=== PATIENT | female | born 1985 | race American Indian/Alaskan Native ===

== ENCOUNTER 2019-05-21 14:07 | Emergency (ER) | payer MEDICAID, OTHER ==
[2019-05-21 14:25] VITALS: BP 147/93
[2019-05-21] MEDS ORDERED: IBUPROFEN 600 MG TAB PO ONE (14:47)
--- NOTE | 2019-05-21 14:47 | Event Note ---
ED Screening Note Date of service: 05/21/19 Time: 14:45 ED Screening Note: 33 y o femLE PRESENTS WITH HEADCHE and gen body aches with fever and cough x 2 days tachy, low grade fever This initial assessment/diagnostic orders/clinical plan/treatment(s) is/are subject to change based on patients health status, clinical progression and re- assessment by fellow clinical providers in the ED. Further treatment and workup at subsequent clinical providers discretion. Patient/guardian urged not to elope from the ED as their condition may be serious if not clinically assessed and managed. Initial orders include: cxr motrin in triage
--- NOTE | 2019-05-21 16:02 | XRay Report ---
CHEST 2 VIEWS INDICATION / CLINICAL INFORMATION: cough/fever. COMPARISON: None available. FINDINGS: SUPPORT DEVICES: None. HEART / MEDIASTINUM: No significant abnormality. LUNGS / PLEURA: No significant pulmonary or pleural abnormality. No pneumothorax. ADDITIONAL FINDINGS: No significant additional findings. IMPRESSION: 1. No acute findings. Signer Name: Matt Aguero MD Signed: 05/21/2019 3:58 PM Workstation Name: [id number]
--- NOTE | 2019-05-21 16:55 | Emergency Department Report ---
ED General Adult HPI - General Chief complaint: Upper Respiratory Infection Stated complaint: FLU LIKE SYMPTOMS Time Seen by Provider: 05/21/19 15:53 Source: patient Mode of arrival: Ambulatory Limitations: No Limitations - History of Present Illness Initial comments: 33-year-old -Wallis[place] female with history of asthma and hypertension presents with complaints of headache, body aches, runny nose, sneezing, and cough starting yesterday. She denies any shortness of breath, chest pain. She admits to wheezing and states she needs a refill on her inhaler. Patient states off his productive of yellow mucus. 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 Severity scale (0 -10): 5 - Related Data Home Medications Medication Instructions Recorded Confirmed Last Taken Pnv with Ca,No.72/Iron/FA 1 tab PO DAILY 09/25/13 11/12/15 09/24/13 12:00 [ Plus Tablet] Previous Rx's Medication Instructions Recorded Last Taken Type HYDROcodone/ACETAMINOPHEN [[place] 1 each PO PRN PRN #20 tablet 09/26/13 Unknown Rx 5/325 Tablet] Ibuprofen [Motrin 600 MG tab] 600 mg PO Q6HR PRN #30 tablet 09/26/13 Unknown Rx labetaloL [Labetalol 100mg TAB] 100 mg PO BID #90 tablet 09/26/13 Unknown Rx Ibuprofen [Motrin 600 MG tab] 600 mg PO Q6H PRN #40 tablet 11/12/15 Unknown Rx ALBUTEROL Inhaler (OR & NICU) 2 puff IH QID PRN #8.5 gram 05/21/19 Unknown Rx [ProAir HFA Inhaler] Benzonatate 200 mg PO TID PRN #30 capsule 05/21/19 Unknown Rx Oseltamivir [Tamiflu] 75 mg PO BID #10 capsule 05/21/19 Unknown Rx Prednisone [predniSONE 5 mg (6-Day 5 mg PO .TAPER #1 tab.ds.pk 05/21/19 Unknown Rx Pack, 21 Tabs)] Butalb/Acetamin/Caff 50-325-40 1 tab PO Q6HR PRN #24 tab 05/27/19 Unknown Rx [Fioricet] Allergies Allergy/AdvReac Type Severity Reaction Status Date / Time No Known Allergies Allergy Verified 09/25/13 03:56 ED Review of Systems ROS: Stated complaint: FLU LIKE SYMPTOMS Other details as noted in HPI Constitutional: chills, fever, malaise Eyes: denies: eye discharge ENT: denies: throat pain Respiratory: cough, wheezing. denies: shortness of breath Cardiovascular: denies: chest pain, palpitations Gastrointestinal: nausea. denies: abdominal pain, vomiting, diarrhea Genitourinary: denies: dysuria Musculoskeletal: myalgia. denies: back pain Skin: denies: rash, lesions Neurological: headache. denies: weakness, numbness, paresthesias ED Past Medical Hx - Past Medical History Previous Medical History?: Yes Hx Hypertension: No Hx Congestive Heart Failure: No Hx Diabetes: No Hx Deep Vein Thrombosis: No Hx Renal Disease: No Hx Sickle Cell Disease: No Hx Seizures: No Hx Asthma: No Hx COPD: No Hx HIV: No Additional medical history: [place] - Surgical History Past Surgical History?: No - Social History Smoking Status: Current Every Day Smoker Substance Use Type: Alcohol - Medications Home Medications: Home Medications Medication Instructions Recorded Confirmed Last Taken Type Pnv with Ca,No.72/Iron/FA 1 tab PO DAILY 09/25/13 11/12/15 09/24/13 12:00 History [ Plus Tablet] HYDROcodone/ACETAMINOPHEN [[place] 1 each PO PRN PRN #20 tablet 09/26/13 11/12/15 Unknown Rx 5/325 Tablet] Ibuprofen [Motrin 600 MG tab] 600 mg PO Q6HR PRN #30 tablet 09/26/13 11/12/15 Unknown Rx labetaloL [Labetalol 100mg TAB] 100 mg PO BID #90 tablet 09/26/13 11/12/15 Unknown Rx Ibuprofen [Motrin 600 MG tab] 600 mg PO Q6H PRN #40 tablet 11/12/15 Unknown Rx ALBUTEROL Inhaler (OR & NICU) 2 puff IH QID PRN #8.5 gram 05/21/19 Unknown Rx [ProAir HFA Inhaler] Benzonatate 200 mg PO TID PRN #30 capsule 05/21/19 Unknown Rx Oseltamivir [Tamiflu] 75 mg PO BID #10 capsule 05/21/19 Unknown Rx Prednisone [predniSONE 5 mg (6-Day 5 mg PO .TAPER #1 tab.ds.pk 05/21/19 Unknown Rx Pack, 21 Tabs)] Butalb/Acetamin/Caff 50-325-40 1 tab PO Q6HR PRN #24 tab 05/27/19 Unknown Rx [Fioricet] ED Physical Exam - General Limitations: No Limitations General appearance: alert, in no apparent distress - Head Head exam: Present: atraumatic, normocephalic - Eye Eye exam: Present: normal appearance - ENT ENT exam: Present: mucous membranes moist - Neck Neck exam: Present: normal inspection, full ROM. Absent: tenderness, lymphadenopathy - Respiratory Respiratory exam: Present: wheezes. Absent: respiratory distress, rales, rhonchi, chest wall tenderness - Cardiovascular Cardiovascular Exam: Present: regular rate, normal rhythm. Absent: systolic murmur, diastolic murmur, rubs, gallop - GI/Abdominal GI/Abdominal exam: Present: soft. Absent: distended, tenderness - Back Exam Back exam: Present: normal inspection - Neurological Exam Neurological exam: Present: alert, oriented X3 - Psychiatric Psychiatric exam: Present: normal affect, normal mood - Skin Skin exam: Present: warm, dry, intact, normal color. Absent: rash ED Course Vital Signs 05/21/19 14:22 Temperature 100.6 F H Pulse Rate 120 H Respiratory 20 Rate Blood Pressure 147/93 O2 Sat by Pulse 98 Oximetry ED Medical Decision Making - Radiology Data Radiology results: report reviewed two-view chest x-ray is negative for acute abnormalities - Medical Decision Making 33-year-old -Wallisian female patient presents here today with complaints of flulike symptoms. She has history of asthma and has been out of her inhaler. She admits to wheezing, but denies shortness of breath. Chest x-ray is negative for pneumonia. Initial temperature and heart rate upon arrival was 100.6 and 120, now 98.7 and 91 bpm, respectively. Patient is nontoxic appearing. Patient stable for discharge home with treatment for the flu. Recommend follow-up with PCP in 5-7 days. Discussed strict return precautions in detail with patient verbalizes understanding. Critical care attestation.: If time is entered above; I have spent that time in minutes in the direct care of this critically ill patient, excluding procedure time. ED Disposition Clinical Impression: Flu syndrome, Wheezing Disposition: TO HOME OR SELFCARE Is pt being admited?: No Condition: Stable Instructions: Influenza (ED) Prescriptions: Benzonatate 200 mg PO TID PRN #30 capsule PRN Reason: Cough Prednisone [predniSONE 5 mg (6-Day Pack, 21 Tabs)] 5 mg PO .TAPER #1 tab.ds.pk ALBUTEROL Inhaler (OR & NICU) [ProAir HFA Inhaler] 2 puff IH QID PRN #8.5 gram PRN Reason: Shortness Of Breath Oseltamivir [Tamiflu] 75 mg PO BID #10 capsule Referrals: [facility],MD [Primary Care Provider] - 3-5 Days
[2019-05-21] MEDS ORDERED: ALBUTEROL 2.5 MG/3 ML NEBU IH ONE (17:24)
[2019-05-21] MEDS ORDERED: IPRATROPIUM 0.02% NEBU 2.5 ML IH ONE (17:24)
[2019-05-21] MEDS ORDERED: dexAMETHasone 20 MG/5 ML VIAL IV ONE (17:24)
== END 2019-05-21 19:20 | disposition home or self-care (01) ==
LOC: ED 14:07
DX: J11.1 Influenza due to unidentified influenza virus with other respiratory manifestations (principal); R06.2 Wheezing; F17.200 Nicotine dependence, unspecified, uncomplicated; Z79.1 Long term (current) use of non-steroidal anti-inflammatories (NSAID); Z79.899 Other long term (current) drug therapy
CPT/HCPCS: 71046; 96374; 99283; J1100; 94640

== ENCOUNTER 2019-05-27 10:48 | Emergency (ER) | payer OTHER ==
[2019-05-27 10:57] VITALS: BP 112/99
[2019-05-27] MEDS ORDERED: BUTALB/ACETAMINOPHEN/CAFFEINE TAB PO ONE (12:43)
[2019-05-27] MEDS ORDERED: diphenhydrAMINE 25 MG CAP PO ONE (12:44)
[2019-05-27] MEDS ORDERED: METOCLOPRAMIDE 10 MG TAB PO ONE (12:44)
[2019-05-27] MEDS ORDERED: predniSONE 20 MG TAB PO ONE (12:44)
--- NOTE | 2019-05-27 12:49 | Emergency Department Report ---
ED General Adult HPI - General Chief complaint: Headache Stated complaint: HEADACHE Time Seen by Provider: 05/27/19 12:43 Source: patient Mode of arrival: Ambulatory Limitations: No Limitations - History of Present Illness Initial comments: Patient presents to the emergency department with a chief complaint of a headache. Patient states the headache is located on the right side of her forehead and describes it as pressure-like in nature. Patient took 2 500 mg tablets of Tylenol yesterday with no relief. Patient denies this being the worse headache of her life. -: Sudden Location: head Severity scale (0 -10): 1 Consistency: constant Improves with: none Worsens with: none Associated Symptoms: denies other symptoms Treatments Prior to Arrival: none - Related Data Home Medications Medication Instructions Recorded Confirmed Last Taken Pnv with Ca,No.72/Iron/FA 1 tab PO DAILY 09/25/13 11/12/15 09/24/13 12:00 [ Plus Tablet] Previous Rx's Medication Instructions Recorded Last Taken Type HYDROcodone/ACETAMINOPHEN [[place] 1 each PO PRN PRN #20 tablet 09/26/13 Unknown Rx 5/325 Tablet] Ibuprofen [Motrin 600 MG tab] 600 mg PO Q6HR PRN #30 tablet 09/26/13 Unknown Rx labetaloL [Labetalol 100mg TAB] 100 mg PO BID #90 tablet 09/26/13 Unknown Rx Ibuprofen [Motrin 600 MG tab] 600 mg PO Q6H PRN #40 tablet 11/12/15 Unknown Rx ALBUTEROL Inhaler (OR & NICU) 2 puff IH QID PRN #8.5 gram 05/21/19 Unknown Rx [ProAir HFA Inhaler] Benzonatate 200 mg PO TID PRN #30 capsule 05/21/19 Unknown Rx Oseltamivir [Tamiflu] 75 mg PO BID #10 capsule 05/21/19 Unknown Rx Prednisone [predniSONE 5 mg (6-Day 5 mg PO .TAPER #1 tab.ds.pk 05/21/19 Unknown Rx Pack, 21 Tabs)] Butalb/Acetamin/Caff 50-325-40 1 tab PO Q6HR PRN #24 tab 05/27/19 Unknown Rx [Fioricet] Allergies Allergy/AdvReac Type Severity Reaction Status Date / Time No Known Allergies Allergy Verified 09/25/13 03:56 ED Review of Systems ROS: Stated complaint: HEADACHE Other details as noted in HPI Comment: All other systems reviewed and negative Constitutional: denies: chills, fever Eyes: denies: eye pain, eye discharge, vision change ENT: denies: ear pain, throat pain Respiratory: denies: cough, shortness of breath, wheezing Cardiovascular: denies: chest pain, palpitations Endocrine: no symptoms reported Gastrointestinal: denies: abdominal pain, nausea, diarrhea Genitourinary: denies: urgency, dysuria, discharge Musculoskeletal: denies: back pain, joint swelling, arthralgia Skin: denies: rash, lesions Neurological: denies: headache, weakness, paresthesias Psychiatric: denies: anxiety, depression Hematological/Lymphatic: denies: easy bleeding, easy bruising ED Past Medical Hx - Past Medical History Previous Medical History?: Yes Hx Hypertension: No Hx Congestive Heart Failure: No Hx Diabetes: No Hx Deep Vein Thrombosis: No Hx Renal Disease: No Hx Sickle Cell Disease: No Hx Seizures: No Hx Asthma: No Hx COPD: No Hx HIV: No Additional medical history: [place] - Surgical History Past Surgical History?: No - Social History Smoking Status: Never Smoker Substance Use Type: None - Medications Home Medications: Home Medications Medication Instructions Recorded Confirmed Last Taken Type Pnv with Ca,No.72/Iron/FA 1 tab PO DAILY 09/25/13 11/12/15 09/24/13 12:00 History [ Plus Tablet] HYDROcodone/ACETAMINOPHEN [[place] 1 each PO PRN PRN #20 tablet 09/26/13 11/12/15 Unknown Rx 5/325 Tablet] Ibuprofen [Motrin 600 MG tab] 600 mg PO Q6HR PRN #30 tablet 09/26/13 11/12/15 Unknown Rx labetaloL [Labetalol 100mg TAB] 100 mg PO BID #90 tablet 09/26/13 11/12/15 Unknown Rx Ibuprofen [Motrin 600 MG tab] 600 mg PO Q6H PRN #40 tablet 11/12/15 Unknown Rx ALBUTEROL Inhaler (OR & NICU) 2 puff IH QID PRN #8.5 gram 05/21/19 Unknown Rx [ProAir HFA Inhaler] Benzonatate 200 mg PO TID PRN #30 capsule 05/21/19 Unknown Rx Oseltamivir [Tamiflu] 75 mg PO BID #10 capsule 05/21/19 Unknown Rx Prednisone [predniSONE 5 mg (6-Day 5 mg PO .TAPER #1 tab.ds.pk 05/21/19 Unknown Rx Pack, 21 Tabs)] Butalb/Acetamin/Caff 50-325-40 1 tab PO Q6HR PRN #24 tab 05/27/19 Unknown Rx [Fioricet] ED Physical Exam - General Limitations: No Limitations General appearance: alert, in no apparent distress - Head Head exam: Present: atraumatic, normocephalic - Eye Eye exam: Present: normal appearance, PERRL, EOMI - ENT ENT exam: Present: mucous membranes moist - Neck Neck exam: Present: normal inspection - Respiratory Respiratory exam: Present: normal lung sounds bilaterally. Absent: respiratory distress - Cardiovascular Cardiovascular Exam: Present: regular rate, normal rhythm. Absent: systolic murmur, diastolic murmur, rubs, gallop - GI/Abdominal GI/Abdominal exam: Present: soft, normal bowel sounds. Absent: distended, tenderness - Extremities Exam Extremities exam: Present: normal inspection - Back Exam Back exam: Present: normal inspection - Neurological Exam Neurological exam: Present: alert, oriented X3, CN II-XII intact. Absent: motor sensory deficit - Psychiatric Psychiatric exam: Present: normal affect, normal mood - Skin Skin exam: Present: warm, dry, intact, normal color. Absent: rash ED Course Vital Signs 05/27/19 05/27/19 10:52 10:53 Temperature 98.3 F 98.3 F Pulse Rate 86 86 Respiratory 18 18 Rate Blood Pressure 112/99 Blood Pressure 112/99 [Right] O2 Sat by Pulse 100 100 Oximetry ED Medical Decision Making - Medical Decision Making Plan of care discussed Critical care attestation.: If time is entered above; I have spent that time in minutes in the direct care of this critically ill patient, excluding procedure time. ED Disposition Clinical Impression: Headache Disposition: DC-01 TO HOME OR SELFCARE Is pt being admited?: No Does the pt Need Aspirin: No Condition: Stable Instructions: Acute Headache (ED) Additional Instructions: return if worse Referrals: [facility] [Provider Group] - 3-5 Days [facility] [Provider Group] - 3-5 Days Time of Disposition: 12:49
== END 2019-05-27 13:14 | disposition home or self-care (01) ==
LOC: ED 10:48
DX: R51 Headache (principal); Z79.899 Other long term (current) drug therapy
CPT/HCPCS: 99282; J7512

== ENCOUNTER 2020-06-19 10:47 | Emergency (ER) | payer OTHER ==
[2020-06-19 10:54] VITALS: BP 147/99
--- NOTE | 2020-06-19 11:30 | Emergency Department Report ---
ED General Adult HPI - General Chief complaint: Dyspnea/Respdistress Stated complaint: CHEST PAIN; ASTHMA Time Seen by Provider: 06/19/20 11:26 Source: patient Mode of arrival: Ambulatory Limitations: No Limitations - History of Present Illness Initial comments: Patient is a 34-year-old female presents emergency room complaints of wheezing and chest tightness that occurs only at night. She denies any symptoms at all currently. She states that she has a history of asthma and uses an albuterol inhaler but she states that she cannot find her inhaler. She denies any shortness of breath, nausea, vomiting, diarrhea, cough, body aches, chills, fever. She denies any sick contacts or recent travel. She denies any other past medical history. She is a non-smoker. No allergies to medications. Last menstrual cycle 05/24/2021. - Related Data Home Medications Medication Instructions Recorded Confirmed Last Taken Pnv with Ca,No.72/Iron/FA 1 tab PO DAILY 09/25/13 11/12/15 09/24/13 12:00 [ Plus Tablet] Previous Rx's Medication Instructions Recorded Last Taken Type HYDROcodone/ACETAMINOPHEN [[place] 1 each PO PRN PRN #20 tablet 09/26/13 Unknown Rx 5/325 Tablet] Ibuprofen [Motrin 600 MG tab] 600 mg PO Q6HR PRN #30 tablet 09/26/13 Unknown Rx labetaloL [Labetalol 100mg TAB] 100 mg PO BID #90 tablet 09/26/13 Unknown Rx Ibuprofen [Motrin 600 MG tab] 600 mg PO Q6H PRN #40 tablet 11/12/15 Unknown Rx Albuterol Mdi (or & Nicu Only) 2 puff IH QID PRN #8.5 gram 05/21/19 Unknown Rx [ProAir HFA Inhaler] Benzonatate 200 mg PO TID PRN #30 capsule 05/21/19 Unknown Rx Oseltamivir [Tamiflu] 75 mg PO BID #10 capsule 05/21/19 Unknown Rx Prednisone [predniSONE 5 mg (6-Day 5 mg PO .TAPER #1 tab.ds.pk 05/21/19 Unknown Rx Pack, 21 Tabs)] Butalb/Acetamin/Caff 50-325-40 1 tab PO Q6HR PRN #24 tab 05/27/19 Unknown Rx [Fioricet] Albuterol Sulfate [Proventil Hfa] 6.7 gm IH TID PRN #1 hfa.aer.ad 06/19/20 Unknown Rx Prednisone [predniSONE 10 mg 10 mg PO .TAPER #1 tab.ds.pk 06/19/20 Unknown Rx (6-Day Pack, 21 Tabs)] Allergies Allergy/AdvReac Type Severity Reaction Status Date / Time No Known Allergies Allergy Verified 09/25/13 03:56 ED Review of Systems ROS: Stated complaint: CHEST PAIN; ASTHMA Other details as noted in HPI Comment: All other systems reviewed and negative ED Past Medical Hx - Past Medical History Previous Medical History?: Yes Hx Hypertension: No Hx Congestive Heart Failure: No Hx Diabetes: No Hx Deep Vein Thrombosis: No Hx Renal Disease: No Hx Sickle Cell Disease: No Hx Seizures: No Hx Asthma: Yes Hx COPD: No Hx HIV: No Additional medical history: [place] - Social History Smoking Status: Never Smoker Substance Use Type: None - Medications Home Medications: Home Medications Medication Instructions Recorded Confirmed Last Taken Type Pnv with Ca,No.72/Iron/FA 1 tab PO DAILY 09/25/13 11/12/15 09/24/13 12:00 History [ Plus Tablet] HYDROcodone/ACETAMINOPHEN [[place] 1 each PO PRN PRN #20 tablet 09/26/13 11/12/15 Unknown Rx 5/325 Tablet] Ibuprofen [Motrin 600 MG tab] 600 mg PO Q6HR PRN #30 tablet 09/26/13 11/12/15 U nknown Rx labetaloL [Labetalol 100mg TAB] 100 mg PO BID #90 tablet 09/26/13 11/12/15 Unknown Rx Ibuprofen [Motrin 600 MG tab] 600 mg PO Q6H PRN #40 tablet 11/12/15 Unknown Rx Albuterol Mdi (or & [place] Only) 2 puff IH QID PRN #8.5 gram 05/21/19 Unknown Rx [ProAir HFA Inhaler] Benzonatate 200 mg PO TID PRN #30 capsule 05/21/19 Unknown Rx Oseltamivir [Tamiflu] 75 mg PO BID #10 capsule 05/21/19 Unknown Rx Prednisone [predniSONE 5 mg (6-Day 5 mg PO .TAPER #1 tab.ds.pk 05/21/19 Unknown Rx Pack, 21 Tabs)] Butalb/Acetamin/Caff 50-325-40 1 tab PO Q6HR PRN #24 tab 05/27/19 Unknown Rx [Fioricet] Albuterol Sulfate [Proventil Hfa] 6.7 gm IH TID PRN #1 hfa.aer.ad 06/19/20 Unknown Rx Prednisone [predniSONE 10 mg 10 mg PO .TAPER #1 tab.ds.pk 06/19/20 Unknown Rx (6-Day Pack, 21 Tabs)] ED Physical Exam - General Limitations: No Limitations General appearance: alert, in no apparent distress - Head Head exam: Present: atraumatic, normocephalic - Eye Eye exam: Present: normal appearance - ENT ENT exam: Present: mucous membranes moist - Respiratory Respiratory exam: Present: normal lung sounds bilaterally. Absent: respiratory distress, wheezes, rales, rhonchi, stridor, chest wall tenderness, accessory muscle use, decreased breath sounds, prolonged expiratory - Cardiovascular Cardiovascular Exam: Present: regular rate, normal rhythm, normal heart sounds. Absent: systolic murmur, diastolic murmur, rubs, gallop - Neurological Exam Neurological exam: Present: alert, oriented X3 - Psychiatric Psychiatric exam: Present: normal affect, normal mood - Skin Skin exam: Present: warm, dry, intact ED Course Vital Signs 06/19/20 10:53 Temperature 98.1 F Pulse Rate 84 Respiratory 18 Rate Blood Pressure 147/99 [Right] O2 Sat by Pulse 100 Oximetry ED Medical Decision Making - Medical Decision Making Patient is a 34-year-old female presents emergency room complaints of wheezing and chest tightness that occurs only at night. She denies any symptoms at all currently. She states that she has a history of asthma and uses an albuterol inhaler but she states that she cannot find her inhaler. She denies any shortness of breath, nausea, vomiting, diarrhea, cough, body aches, chills, fever. She denies any sick contacts or recent travel. She denies any other past medical history. She is a non-smoker. No allergies to medications. Last menstrual cycle 05/24/2021. Vitals are stable. No hypoxia, no tachycardia, no fever. Breath sounds are clear bilaterally, no wheezing, no rales, no rhonchi. She has no clinical signs of acute asthma exacerbation currently. No clinical signs of bacterial pneumonia or bacterial bronchitis. She is PERC criteria negative for PE, PE unlikely. Symptoms likely related to her having a mild asthma exacerbation at night. Patient will be given steroids and albuterol inhaler refill. Advised patient Please take medication as prescribed. Follow- up with a primary care doctor. Return to emergency room immediately for any new or worsening symptoms. Critical care attestation.: If time is entered above; I have spent that time in minutes in the direct care of this critically ill patient, excluding procedure time. ED Disposition Clinical Impression: Medication refill Asthma Qualifiers: Asthma severity: mild Asthma persistence: intermittent Asthma complication type: uncomplicated Qualified Code(s): J45.20 - Mild intermittent asthma, uncomplicated Disposition: TO HOME OR SELFCARE Is pt being admited?: No Does the pt Need Aspirin: No Condition: Stable Instructions: Asthma, Adult, Asthma (ED) Additional Instructions: Please take medication as prescribed. Follow-up with a primary care doctor. Return to emergency room immediately for any new or worsening symptoms. Prescriptions: Prednisone [predniSONE 10 mg (6-Day Pack, 21 Tabs)] 10 mg PO .TAPER #1 tab.ds.pk Albuterol Sulfate [Proventil Hfa] 6.7 gm IH TID PRN #1 hfa.aer.ad PRN Reason: wheezing Referrals: MICHAEL MENDIOLA MD [Staff Physician] - 3-5 Days [facility] [Provider Group] - 3-5 Days [facility], [LAB/CONTRACT] - 3-5 Days [facility], [Primary Care Provider] - 3-5 Days Time of Disposition: 11:29 Print Language: J[place]
== END 2020-06-19 11:41 | disposition home or self-care (01) ==
LOC: ED 10:47
DX: J45.909 Unspecified asthma, uncomplicated (principal); Z79.899 Other long term (current) drug therapy; Z76.0 Encounter for issue of repeat prescription
CPT/HCPCS: 99281

== ENCOUNTER 2021-03-22 08:12 | Emergency (ER) | payer OTHER ==
[2021-03-22 08:34] VITALS: BP 166/99
[2021-03-22] MEDS ORDERED: IBUPROFEN 800 MG TAB PO STA (09:10)
[2021-03-22] MEDS ORDERED: ACETAMINOPHEN 500 MG TAB PO STA (09:10)
--- NOTE | 2021-03-22 09:15 | Emergency Department Report ---
ED General Adult HPI - General Chief complaint: Fall Stated complaint: FELL ,RT ANKLE PAIN Time Seen by Provider: 03/22/21 08:39 Source: patient, family Mode of arrival: Ambulatory Limitations: No Limitations - History of Present Illness Initial comments: 35-year-old -Portuguese female patient presents with complaints of right ankle pain and swelling x yesterday. Patient states she twisted her ankle while walking in her driveway. She denies any loss of sensation or skin changes. She rates her pain as a 6/10 in severity and states it worsens with movement and with ambulation. She has not tried any OTC medications for symptoms. -: Sudden - Related Data Home Medications Medication Instructions Recorded Confirmed Last Taken Pnv with Ca,No.72/Iron/FA 1 tab PO DAILY 09/25/13 11/12/15 09/24/13 12:00 [ Plus Tablet] Previous Rx's Medication Instructions Recorded Last Taken Type HYDROcodone/ACETAMINOPHEN [[place] 1 each PO PRN PRN #20 tablet 09/26/13 Unknown Rx 5/325 Tablet] Ibuprofen [Motrin 600 MG tab] 600 mg PO Q6HR PRN #30 tablet 09/26/13 Unknown Rx labetaloL [Labetalol 100mg TAB] 100 mg PO BID #90 tablet 09/26/13 Unknown Rx Ibuprofen [Motrin 600 MG tab] 600 mg PO Q6H PRN #40 tablet 11/12/15 Unknown Rx Albuterol Mdi (or & Nicu Only) 2 puff IH QID PRN #8.5 gram 05/21/19 Unknown Rx [ProAir HFA Inhaler] Benzonatate 200 mg PO TID PRN #30 capsule 05/21/19 Unknown Rx Oseltamivir [Tamiflu] 75 mg PO BID #10 capsule 05/21/19 Unknown Rx Prednisone [predniSONE 5 mg (6-Day 5 mg PO .TAPER #1 tab.ds.pk 05/21/19 Unknown Rx Pack, 21 Tabs)] Butalb/Acetamin/Caff 50-325-40 1 tab PO Q6HR PRN #24 tab 05/27/19 Unknown Rx [Fioricet] Albuterol Sulfate [Proventil Hfa] 6.7 gm IH TID PRN #1 hfa.aer.ad 06/19/20 Unknown Rx Prednisone [predniSONE 10 mg 10 mg PO .TAPER #1 tab.ds.pk 06/19/20 Unknown Rx (6-Day Pack, 21 Tabs)] Naproxen 500 mg PO BID PRN #20 tablet 03/22/21 Unknown Rx Allergies Allergy/AdvReac Type Severity Reaction Status Date / Time No Known Allergies Allergy Verified 09/25/13 03:56 ED Review of Systems ROS: Stated complaint: FELL ,RT ANKLE PAIN Other details as noted in HPI Musculoskeletal: joint swelling, arthralgia Skin: denies: change in color Neurological: denies: numbness, paresthesias ED Past Medical Hx - Past Medical History Previous Medical History?: Yes Hx Hypertension: No Hx Congestive Heart Failure: No Hx Diabetes: No Hx Deep Vein Thrombosis: No Hx Renal Disease: No Hx Sickle Cell Disease: No Hx Seizures: No Hx Asthma: Yes Hx COPD: No Hx HIV: No Additional medical history: [place] - Surgical History Past Surgical History?: No - Social History Smoking Status: Never Smoker Substance Use Type: None - Medications Home Medications: Home Medications Medication Instructions Recorded Confirmed Last Taken Type Pnv with Ca,No.72/Iron/FA 1 tab PO DAILY 09/25/13 11/12/15 09/24/13 12:00 History [ Plus Tablet] HYDROcodone/ACETAMINOPHEN [[place] 1 each PO PRN PRN #20 tablet 09/26/13 11/12/15 Unknown Rx 5/325 Tablet] Ibuprofen [Motrin 600 MG tab] 600 mg PO Q6HR PRN #30 tablet 09/26/13 11/12/15 Unknown Rx labetaloL [Labetalol 100mg TAB] 100 mg PO BID #90 tablet 09/26/13 11/12/15 Un known Rx Ibuprofen [Motrin 600 MG tab] 600 mg PO Q6H PRN #40 tablet 11/12/15 Unknown Rx Albuterol Mdi (or & Nicu Only) 2 puff IH QID PRN #8.5 gram 05/21/19 Unknown Rx [ProAir HFA Inhaler] Benzonatate 200 mg PO TID PRN #30 capsule 05/21/19 Unknown Rx Oseltamivir [Tamiflu] 75 mg PO BID #10 capsule 05/21/19 Unknown Rx Prednisone [predniSONE 5 mg (6-Day 5 mg PO .TAPER #1 tab.ds.pk 05/21/19 Unknown Rx Pack, 21 Tabs)] Butalb/Acetamin/Caff 50-325-40 1 tab PO Q6HR PRN #24 tab 05/27/19 Unknown Rx [Fioricet] Albuterol Sulfate [Proventil Hfa] 6.7 gm IH TID PRN #1 hfa.aer.ad 06/19/20 Unknown Rx Prednisone [predniSONE 10 mg 10 mg PO .TAPER #1 tab.ds.pk 06/19/20 Unknown Rx (6-Day Pack, 21 Tabs)] Naproxen 500 mg PO BID PRN #20 tablet 03/22/21 Unknown Rx ED Physical Exam - General Limitations: No Limitations General appearance: alert, in no apparent distress, obese - Head Head exam: Present: atraumatic, normocephalic - Eye Eye exam: Present: normal appearance - Respiratory Respiratory exam: Absent: respiratory distress - Cardiovascular Cardiovascular Exam: Present: regular rate - Expanded Lower Extremity Exam Right Ankle exam: Present: full ROM, tenderness (Lateral malleolus), swelling (Mild). Absent: abrasion, laceration, ecchymosis, deformity, crepidus Foot/Toe exam: Present: full ROM Neuro vascular tendon exam: Present: no vascular compromise. Absent: pulse deficit Gait: Positive: antalgic - Neurological Exam Neurological exam: Present: alert, oriented X3 - Psychiatric Psychiatric exam: Present: normal affect, normal mood - Skin Skin exam: Present: warm, dry, intact, normal color. Absent: rash ED Course Vital Signs 03/22/21 08:31 Temperature 98 F Pulse Rate 84 Respiratory 16 Rate Blood Pressure 166/99 [Left] O2 Sat by Pulse 99 Oximetry ED Medical Decision Making - Radiology Data Radiology results: report reviewed XR ankle 3+V RT INDICATION / CLINICAL INFORMATION: lateral pain after twist injury. COMPARISON: None available. FINDINGS: BONES/JOINT(S): No acute fracture or subluxation. No significant degenerative changes. SOFT TISSUES: Soft tissue swelling in the lateral ankle. ADDITIONAL FINDINGS: None. - Medical Decision Making 35-year-old -Portuguese female patient presents with complaints of right ankle pain and swelling x yesterday. Patient states she twisted her ankle while walking in her driveway. She denies any loss of sensation or skin changes. She rates her pain as a 6/10 in severity and states it worsens with movement and with ambulation. She has not tried any OTC medications for symptoms. X-rays negative for any acute bony abnormality. Will treat for ankle sprain with Ta wrap, crutches, and rice method and NSAIDs. Patient to follow-up with orthopedics as needed. She is otherwise well-appearing, her vitals are within normal limits, she is stable for discharge home. Discussed signs and symptoms that should prompt immediate return to emergency department with patient who verbalizes understanding Critical care attestation.: If time is entered above; I have spent that time in minutes in the direct care of this critically ill patient, excluding procedure time. ED Disposition Clinical Impression: Right ankle sprain Disposition: HOME / SELF CARE / HOMELESS Is pt being admited?: No Condition: Stable Instructions: Ankle Sprain, Elastic Bandage and RICE Therapy Prescriptions: Naproxen 500 mg PO BID PRN #20 tablet PRN Reason: pain Referrals: [facility] [Provider Group] - as needed
--- NOTE | 2021-03-22 09:45 | XRay Report ---
XR ankle 3+V RT INDICATION / CLINICAL INFORMATION: lateral pain after twist injury. COMPARISON: None available. FINDINGS: BONES/JOINT(S): No acute fracture or subluxation. No significant degenerative changes. SOFT TISSUES: Soft tissue swelling in the lateral ankle. ADDITIONAL FINDINGS: None. Signer Name: Malachi Bernabe MD Signed: 03/22/2021 9:41 AM Workstation Name: [id number]
== END 2021-03-22 11:30 | disposition home or self-care (01) ==
LOC: ED 08:12
DX: S93.401A Sprain of unspecified ligament of right ankle, initial encounter (principal); J45.909 Unspecified asthma, uncomplicated; X50.1XXA Overexertion from prolonged static or awkward postures, initial encounter; Y93.89 Activity, other specified; Y92.89 Other specified places as the place of occurrence of the external cause; Y99.8 Other external cause status
CPT/HCPCS: 99283

== ENCOUNTER 2021-08-08 11:00 | Emergency (ER) | payer SELFPAY ==
--- NOTE | 2021-08-08 14:32 | Emergency Department Report ---
ED Asthma HPI - General Chief Complaint: Adult Asthma Stated Complaint: asthma exacerbation PUI?: Yes Time Seen by Provider: 08/08/21 14:17 Source: EMS Mode of arrival: Stretcher Limitations: No Limitations - History of Present Illness Initial Comments: 35-year-old -Malag[place] female who has a known history of asthma presents to the ER today with complaints of asthma flareup. She states that it occurred while she was at work today. She is unsure of any triggers. She states that she started to brief "hard" and she was also having a dry cough and some mild wheezing. She used her albuterol MDI twice which did help. She states that she has not had any fever or chills. She denies any ill contacts or recent travel. She has gotten her COVID-19 vaccines. She states that the last time she was admitted for her asthma was in 2018. She states that she is never been intubated before. She states that she is also concerned because when the ambulance came to check her at her job when her asthma started flaring up, they noted that her blood pressure was elevated. She denies any history of hypertension. Patient does admit to tobacco use. She reports no additional symptoms at this time. MD Complaint: "asthma attack" -: This morning - Related Data Home Medications Medication Instructions Recorded Confirmed Last Taken Pnv with Ca,No.72/Iron/FA 1 tab PO DAILY 09/25/13 11/12/15 09/24/13 12:00 [ Plus Tablet] Previous Rx's Medication Instructions Recorded Last Taken Type HYDROcodone/ACETAMINOPHEN [[place] 1 each PO PRN PRN #20 tablet 09/26/13 Unknown Rx 5/325 Tablet] Ibuprofen [Motrin 600 MG tab] 600 mg PO Q6HR PRN #30 tablet 09/26/13 Unknown Rx labetaloL [Labetalol 100mg TAB] 100 mg PO BID #90 tablet 09/26/13 Unknown Rx Ibuprofen [Motrin 600 MG tab] 600 mg PO Q6H PRN #40 tablet 11/12/15 Unknown Rx Albuterol Mdi (or & Nicu Only) 2 puff IH QID PRN #8.5 gram 05/21/19 Unknown Rx [ProAir HFA Inhaler] Benzonatate 200 mg PO TID PRN #30 capsule 05/21/19 Unknown Rx Oseltamivir [Tamiflu] 75 mg PO BID #10 capsule 05/21/19 Unknown Rx Butalb/Acetamin/Caff 50-325-40 1 tab PO Q6HR PRN #24 tab 05/27/19 Unknown Rx [Fioricet] Albuterol Sulfate [Proventil Hfa] 6.7 gm IH TID PRN #1 hfa.aer.ad 06/19/20 Unknown Rx Naproxen 500 mg PO BID PRN #20 tablet 03/22/21 Unknown Rx predniSONE [Deltasone] 20 mg PO BID #10 tab 08/08/21 Unknown Rx Allergies Allergy/AdvReac Type Severity Reaction Status Date / Time No Known Allergies Allergy Verified 09/25/13 03:56 ED Review of Systems ROS: Stated complaint: asthma exacerbation Other details as noted in HPI Comment: All other systems reviewed and negative Constitutional: denies: chills, diaphoresis, fever, malaise, weakness Eyes: denies: eye pain, vision change ENT: denies: ear pain, throat pain, dental pain, hearing loss, epistaxis, congestion Respiratory: cough, shortness of breath, wheezing Cardiovascular: denies: chest pain, palpitations Gastrointestinal: denies: abdominal pain, nausea, diarrhea, constipation, hematemesis, melena, hematochezia Genitourinary: denies: urgency, dysuria, frequency, hematuria, discharge, abnormal menses, dyspareunia Musculoskeletal: denies: back pain, joint swelling, arthralgia, myalgia Skin: denies: rash, lesions, change in color, change in hair/nails, pruritus Neurological: denies: headache, weakness, numbness, paresthesias, confusion, abnormal gait, vertigo Psychiatric: denies: anxiety, depression, auditory hallucinations, visual hallucinations, homicidal thoughts, suicidal thoughts Hematological/Lymphatic: denies: easy bleeding, easy bruising ED Past Medical Hx - Past Medical History Hx Hypertension: No Hx Congestive Heart Failure: No Hx Diabetes: No Hx Deep Vein Thrombosis: No Hx Renal Disease: No Hx Sickle Cell Disease: No Hx Seizures: No Hx Asthma: Yes Hx COPD: No Hx HIV: No Additional medical history: [place] - Social History Smoking Status: Never Smoker Substance Use Type: None - Medications Home Medications: Home Medications Medication Instructions Recorded Confirmed Last Taken Type Pnv with Ca,No.72/Iron/FA 1 tab PO DAILY 09/25/13 11/12/15 09/24/13 12:00 History [ Plus Tablet] HYDROcodone/ACETAMINOPHEN [[place] 1 each PO PRN PRN #20 tablet 09/26/13 11/12/15 Unknown Rx 5/325 Tablet] Ibuprofen [Motrin 600 MG tab] 600 mg PO Q6HR PRN #30 tablet 09/26/13 11/12/15 Unknown Rx labetaloL [Labetalol 100mg TAB] 100 mg PO BID #90 tablet 09/26/13 11/12/15 Unknown Rx Ibuprofen [Motrin 600 MG tab] 600 mg PO Q6H PRN #40 tablet 11/12/15 Unknown Rx Albuterol Mdi (or & Nicu Only) 2 puff IH QID PRN #8.5 gram 05/21/19 Unknown Rx [ProAir HFA Inhaler] Benzonatate 200 mg PO TID PRN #30 capsule 05/21/19 Unknown Rx Oseltamivir [Tamiflu] 75 mg PO BID #10 capsule 05/21/19 Unknown Rx Butalb/Acetamin/Caff 50-325-40 1 tab PO Q6HR PRN #24 tab 05/27/19 Unknown Rx [Fioricet] Albuterol Sulfate [Proventil Hfa] 6.7 gm IH TID PRN #1 hfa.aer.ad 06/19/20 Unknown Rx Naproxen 500 mg PO BID PRN #20 tablet 03/22/21 Unknown Rx predniSONE [Deltasone] 20 mg PO BID #10 tab 08/08/21 Unknown Rx ED Physical Exam - General Limitations: No Limitations General appearance: alert, in no apparent distress - Head Head exam: Present: atraumatic, normocephalic, normal inspection - Eye Eye exam: Present: normal appearance, PERRL, EOMI Pupils: Present: normal accommodation - Neck Neck exam: Present: normal inspection, full ROM. Absent: meningismus - Respiratory Respiratory exam: Present: normal lung sounds bilaterally. Absent: respiratory distress, wheezes, rales, rhonchi - Cardiovascular Cardiovascular Exam: Present: regular rate, normal rhythm, normal heart sounds - GI/Abdominal GI/Abdominal exam: Present: soft. Absent: distended, tenderness, guarding, rebound - Neurological Exam Neurological exam: Present: alert, oriented X3, CN II-XII intact, normal gait - Psychiatric Psychiatric exam: Present: normal affect, normal mood - Skin Skin exam: Present: intact ED Course Vital Signs 08/08/21 11:10 Temperature 98.8 F Pulse Rate 82 Respiratory 16 Rate Blood Pressure 138/88 [Right] O2 Sat by Pulse 97 Oximetry ED Medical Decision Making - Medical Decision Making Patient is well-appearing, nontoxic and not in any acute distress. Chest is clear to auscultation. She is moving air well. Her vital signs are all normal including normal blood pressure and she is not hypoxic, tachycardic, and she is afebrile. At this time there is no indication for any emergent asthma treatment or imaging. Patient be given a prescription for some prednisone and recommend that she continues her albuterol MDI. She also be given referral to primary care provider since she does not have 1. Patient was stable at time of discharge. Critical care attestation.: If time is entered above; I have spent that time in minutes in the direct care of this critically ill patient, excluding procedure time. ED Disposition Clinical Impression: Asthma flare Disposition: 01 HOME / SELF CARE / HOMELESS Is pt being admited?: No Does the pt Need Aspirin: No Condition: Stable Instructions: Asthma, Adult, [id number] Additional Instructions: Take the prednisone as prescribed. Continue to use your albuterol MDI as needed. You can take robitussin or mucinex for any cough. Follow up with PCP. Return to ED if worse. Prescriptions: predniSONE [Deltasone] 20 mg PO BID #10 tab Referrals: MAHENDRA KIM MD [Staff Physician] - 3-5 Days Forms: Work/School Release Form(ED) Time of Disposition: 14:32
[2021-08-08 17:06] VITALS: BP 128/84
== END 2021-08-08 17:05 | disposition home or self-care (01) ==
LOC: ED 11:00
DX: J45.909 Unspecified asthma, uncomplicated (principal)
CPT/HCPCS: 99283